=== PATIENT | male | born 1985 | race African-American/Black ===

== ENCOUNTER 2021-07-16 20:24 | Emergency (ER) | payer MEDICAID ==
[~2021-07-16] VITALS: Ht 177.8 cm; Wt 93.0 kg
[2021-07-16] MEDS ORDERED: HYDROCODONE/ACETAMINOPHEN 5/325MG TABLET PO ONE (22:45)
[2021-07-16] MEDS ORDERED: IBUP-2030 MT (23:36)
[2021-07-16] MEDS ORDERED: HYDR-4001 MT (23:36)
[2021-07-17 00:21] VITALS: BP 138/85
== END 2021-07-17 01:16 | disposition home or self-care (01) ==
LOC: ER 20:24
DX: S62.365A Nondisplaced fracture of neck of fourth metacarpal bone, left hand, initial encounter for closed fracture (principal); S62.306A Unspecified fracture of fifth metacarpal bone, right hand, initial encounter for closed fracture; I10 Essential (primary) hypertension; Z98.890 Other specified postprocedural states; W01.0XXA Fall on same level from slipping, tripping and stumbling without subsequent striking against object, initial encounter; Y93.67 Activity, basketball; Y92.89 Other specified places as the place of occurrence of the external cause; Y99.8 Other external cause status
CPT/HCPCS: 29125; 73130; 99283; Z7610